=== PATIENT | female | born 2000 | race Caucasian/White ===

== ENCOUNTER 2022-03-17 09:26 | Emergency (ER) | payer OTHER, SELFPAY ==
--- NOTE | 2022-03-17 09:28 | ED.URI ---
HPI - URI/Sore Throat General Chief Complaint: Upper Respiratory Infection Stated Complaint: Sore Throat/Cough Time Seen by Provider: 03/17/22 09:28 Source: patient, family and RN notes reviewed History of Present Illness HPI Narrative: Patient is a 21-year-old female who presents to urgent care with complaints of sore throat cough. Mother states that her symptoms started yesterday and the sore throat was worse this morning. Denies any fever, nausea or vomiting. Patient has not taken anything [id number] for her symptoms. No other acute complaints. No acute distress noted. Patient aware of the plan of care. Some parts of this dictation were generated by voice recognition software and may contain typographical and/or grammatical inaccuracies. Related Data Home Medications Medication Instructions Recorded Confirmed No Home Medications 03/17/22 03/17/22 Allergies Allergy/AdvReac Type Severity Reaction Status Date / Time No Known Allergies Allergy Verified 03/17/22 10:00 Review of Systems Review of Systems: CONSTITUTIONAL: Denies fever, chills, or sweats. EYES: Denies visual changes, redness, or discharge. ENT: reports mild congestion, sore throat CARDIOVASCULAR: Denies chest pain, palpitations, or edema. RESPIRATORY: reports of cough GASTROINTESTINAL: Denies abdominal pain, nausea, vomiting, or diarrhea. GENITOURINARY: Denies dysuria or hematuria. SKIN: Denies rash or itching. MUSCULOSKELETAL: Denies back pain, joint pain, or myalgia. NEUROLOGIC: Denies headache, numbness, or weakness. All other systems reviewed are negative, except as documented in HPI. PMFSH Comments At the time of my signature, I reviewed and agree with the nursing past medical, surgical, social, and family history. There is no relevant family history pertinent to the patient complaint. Exam Narrative: GENERAL: This is a well-nourished, well-developed patient, in no apparent distress. HEAD: normocephalic, atraumatic. EYES: PERRL. Sclera clear/white. Vision is grossly intact. EARS: External ears normal, auditory canals clear and without drainage, TMs normal without perforation. Hearing grossly intact. NOSE: External nose normal with no obvious nasal discharge, nares without redness, Clear rhinorrhea. THROAT: Mucous membranes moist; moderate erythema to posterior oropharynx with mild tonsillar edema and exudate. NECK: Neck supple, non-tender without lymphadenopathy CARDIOVASCULAR: Regular rate and rhythm without murmurs, gallops, or rubs. RESPIRATORY: Clear to auscultation. Breath sounds equal bilaterally. No wheezes, rales, or rhonchi. SKIN: warm, intact with no suspicious lesions or rash, good texture and turgor. NEURO: awake, alert, and oriented to person, place and time. There were no obvious focal neurologic abnormalities. EXTREMITIES: No clubbing, cyanosis, or edema. Course Course Level of Care: Express Care Visit Vital Signs Vital signs: Vital Signs Temperature 97.4 F L 03/17/22 09:44 Pulse Rate 87 03/17/22 09:44 Respiratory Rate 16 03/17/22 09:44 Blood Pressure 120/91 H 03/17/22 09:44 Pulse Oximetry 100 03/17/22 09:44 Oxygen Delivery Room Air 03/17/22 09:44 Temperature 97.4 F L 03/17/22 09:44 Pulse Rate 87 03/17/22 09:44 Respiratory Rate 16 03/17/22 09:44 Blood Pressure 120/91 H 03/17/22 09:44 Pulse Oximetry 100 03/17/22 09:44 Oxygen Delivery Room Air 03/17/22 09:44 reviewed- Patient is informed that they may have pre-hypertension or hypertension based on a blood pressure reading in the department. I recommend the patient call the primary care provider listed on their discharge instructions or a physician of their choice this week to arrange follow-up for further evaluation of possible pre-hypertension or hypertension. MDM - URI/Sore Throat MDM Narrative Medical decision making narrative: reviewed lab results with the patient. She is aware that strep swab Was negat
[2022-03-17 09:44] VITALS: BP 120/91; PULSE 87; RESP 16; TEMP 36.3; O2SAT 100
== END 2022-03-17 10:45 | disposition home or self-care (01) ==
PROVIDERS: Emergency Provider Nurse Practitioner Family
DX: J02.9 Acute pharyngitis, unspecified (principal)
CPT/HCPCS: 87081; 87880; 99213; G0463

== ENCOUNTER 2022-10-30 11:21 | Emergency (ER) | payer OTHER, SELFPAY ==
[2022-10-30 11:27] VITALS: BP 127/93; PULSE 89; RESP 16; TEMP 36.3; O2SAT 99
--- NOTE | 2022-10-30 11:36 | ED.NAVMDI ---
HPI - Nausea/Vomiting/Diarrhea General Chief complaint: Nausea/Vomiting/Diarrhea Stated complaint: Vomiting Source: patient and RN notes reviewed Mode of arrival: ambulatory Limitations: no limitations History of Present Illness HPI Narrative: Patient is a 22-year-old female who presents to the [facility] with complaints of nausea and vomiting that has been intermittent for the past 2 weeks. Patient states that she is mostly dry heaving. States that she very infrequently vomits. However, she reports continuous nausea that worsens with eating. She denies abdominal pain, diarrhea, urinary symptoms. Denies recent fever or chills. States that she has taken 3 tests at home were all negative. Patient states that she feels as if her symptoms are getting better. However, her grandmother states that she needed to get checked out today. Related Data Allergies Allergy/AdvReac Type Severity Reaction Status Date / Time No Known Allergies Allergy Verified 03/17/22 10:00 Review of Systems Review of Systems: CONSTITUTIONAL: Denies fever, chills, or sweats. EYES: Denies visual changes, redness, or discharge. ENT: Denies otalgia and sore throat CARDIOVASCULAR: Denies chest pain, palpitations, or edema. RESPIRATORY: Denies cough or dyspnea. GASTROINTESTINAL: Denies abdominal pain and diarrhea. Reports nausea and vomiting. GENITOURINARY: Denies dysuria or hematuria. SKIN: Denies rash or itching. MUSCULOSKELETAL: Denies back pain, joint pain, or myalgia. NEUROLOGIC: Denies headache, numbness, or weakness. Pertinent positives per HPI. PMFSH Comments At the time of my signature, I reviewed and agree with the nursing past medical, surgical, social, and family history. There is no relevant family history pertinent to the patient complaint. Exam Narrative: GENERAL: This is a well-nourished, well-developed patient, in no apparent distress. HEAD: normocephalic, atraumatic. EYES: Sclera clear/white. Vision is grossly intact. EARS: External ears normal. Hearing grossly intact. NOSE: External nose normal with no obvious nasal discharge, nares without redness, no rhinorrhea. THROAT: Mucous membranes moist, posterior pharynx clear. NECK: Neck supple, non-tender without lymphadenopathy, masses or thyromegaly. CARDIOVASCULAR: Regular rate and rhythm without murmurs, gallops, or rubs. RESPIRATORY: Clear to auscultation. Breath sounds equal bilaterally. No wheezes, rales, or rhonchi. GASTROINTESTINAL: Abdomen soft, non-tender, nondistended. Bowel sounds are active. No hepato-splenomegaly, or palpable masses. No guarding. SKIN: warm, intact with no suspicious lesions or rash, good texture and turgor. NEURO: awake, alert, and oriented to person, place and time. There were no obvious focal neurologic abnormalities. Course Course Level of Care: Express Care Visit Vital Signs Vital signs: Vital Signs Temperature 97.4 F L 10/30/22 11:27 Pulse Rate 89 10/30/22 11:27 Respiratory Rate 16 10/30/22 11:27 Blood Pressure 127/93 H 10/30/22 11:27 Pulse Oximetry 99 10/30/22 11:27 Oxygen Delivery Room Air 10/30/22 11:27 Temperature 97.4 F L 10/30/22 11:27 Pulse Rate 89 10/30/22 11:27 Respiratory Rate 16 10/30/22 11:27 Blood Pressure 127/93 H 10/30/22 11:27 Pulse Oximetry 99 10/30/22 11:27 Oxygen Delivery Room Air 10/30/22 11:27 Reviewed MDM - Nausea/Vomiting/Diarrhea MDM Narrative Medical decision making narrative: You've been diagnosed with a viral illness that would not require antibiotics at this time. Take the Zofran ODT at home as directed for nausea and get plenty of fluids. If you would like to eat food, you should follow the BRAT diet (bananas, rice, applesauce, and toast, or things of the like). If you develop any new or worsening symptoms, you should go to the emergency dept without hesitation. Follow up with your gas worker in 2-5 days. Differential Diagnosis Differential diagnos
== END 2022-10-30 11:39 | disposition home or self-care (01) ==
PROVIDERS: Emergency Provider Nurse Practitioner
DX: A08.4 Viral intestinal infection, unspecified (principal)
CPT/HCPCS: 99213; G0463

== ENCOUNTER 2023-03-15 09:58 | Emergency (ER) | payer OTHER, SELFPAY ==
[2023-03-15 10:03] VITALS: BP 124/74; PULSE 90; RESP 18; TEMP 36.7; O2SAT 98
--- NOTE | 2023-03-15 10:15 | ED.NAVMDI ---
HPI - Nausea/Vomiting/Diarrhea General Chief complaint: Nausea/Vomiting/Diarrhea Stated complaint: Vomiting History of Present Illness HPI Narrative: PATIENT PRESENTS WITH NAUSEA AND VOMITING WITH SOME CONCERN FOR . PATIENT HAS RIGHT LOWER QUADRANT PAIN WORSE WITH MOVEMENT. FEVER ON AND OFF Related Data Home Medications Medication Instructions Recorded Confirmed No Home Medications 03/15/23 03/15/23 Allergies Allergy/AdvReac Type Severity Reaction Status Date / Time No Known Allergies Allergy Verified 03/15/23 10:12 Review of Systems Review of Systems: CONSTITUTIONAL: DENIES CHILLS, OR SWEATS. REPORTS FEVER AND GENERALIZED BODY ACHES EYES: DENIES VISUAL CHANGES, REDNESS, OR DISCHARGE. ENT: DENIES OTALGIA. REPORTS NASAL CONGESTION RUNNY NOSE AND SORE THROAT CARDIOVASCULAR: DENIES CHEST PAIN, PALPITATIONS, OR EDEMA. RESPIRATORY: DENIES DYSPNEA. REPORTS OCCASIONAL COUGH GASTROINTESTINAL: DENIES ABDOMINAL PAIN, NAUSEA, VOMITING, OR DIARRHEA. GENITOURINARY: DENIES DYSURIA OR HEMATURIA. SKIN: DENIES RASH OR ITCHING. MUSCULOSKELETAL: DENIES BACK PAIN, JOINT PAIN, OR MYALGIA. REPORTS GENERALIZED BODY ACHES NEUROLOGIC: DENIES HEADACHE, NUMBNESS, OR WEAKNESS. PSYCHIATRIC: DENIES ANXIETY OR DEPRESSION. PMFSH Comments AT TIME OF SIGNATURE, AGREE WITH NURSING PAST MEDICAL, SURGICAL, SOCIAL AND FAMILY HISTORY. THERE IS NO RELEVANT FAMILY HISTORY PERTINENT TO THE PRESENTING COMPLAINT Exam Narrative: GENERAL: WELL-APPEARING, WELL-NOURISHED, AND IN NO ACUTE DISTRESS. HEAD: NORMOCEPHALIC, ATRAUMATIC. EYES: PERRLA AND EOMI. ENT: NARES CLEAR, NO RHINORRHEA OR EPISTAXIS. MUCOUS MEMBRANES MOIST. NECK: SUPPLE. CHEST: CLEAR TO AUSCULTATION. NO RESPIRATORY DISTRESS. HEART: REGULAR RATE AND RHYTHM. NO MURMUR HEARD. NORMAL PERIPHERAL PULSES. ABDOMEN: SOFT, NONTENDER, NONDISTENDED, NORMAL ACTIVE BOWEL SOUNDS.RIGHT LOWER QUADRANT TENDERNESS AND GUARDING EXTREMITIES: NORMAL RANGE OF MOTION. NO EDEMA. SKIN: WARM, DRY, NO RASH. NEURO: NO FOCAL DEFICITS. ALERT AND ORIENTED X3. MEEK COMA SCALE EYE OPENING: SPONTANEOUS 4 MEEK COMA SCALE MOTOR: OBEYS COMMANDS 6 MEEK COMA SCALE VERBAL: ORIENTED 5 MEEK COMA SCALE TOTAL 15 Course Course Level of Care: Express Care Visit Vital Signs Vital signs: Vital Signs Temperature 36.7 C 03/15/23 10:03 Pulse Rate 90 03/15/23 10:03 Respiratory Rate 18 03/15/23 10:03 Blood Pressure 124/74 03/15/23 10:03 Pulse Oximetry 98 03/15/23 10:03 Oxygen Delivery Room Air 03/15/23 10:03 Temperature 36.7 C 03/15/23 10:03 Pulse Rate 90 03/15/23 10:03 Respiratory Rate 18 03/15/23 10:03 Blood Pressure 124/74 03/15/23 10:03 Pulse Oximetry 98 03/15/23 10:03 Oxygen Delivery Room Air 03/15/23 10:03 Transfer Transfered to: [facility] Transportation: Other Accepting physician: MARK ANTHONY Transfer comments: FURTHER EVALUATION TREATMENT LABS AND IMAGING OF RIGHT LOWER QUADRANT PAIN, NAUSEA VOMITING Discharge Plan Discharge Clinical Impression: Abdominal pain Patient Disposition: Acute Care Hospital Condition: Stable Additional Instructions: DO NOT EAT OR DRINK EN ROUTE TO [facility] Prescriptions: No Action No Home Medications Follow-up/Referrals: PHYSICIAN,TRANSFERRER [Primary Care Provider] -
== END 2023-03-15 10:30 | disposition short-term general hospital (02) ==
PROVIDERS: Emergency Provider Nurse Practitioner Family
DX: R10.31 Right lower quadrant pain (principal)
CPT/HCPCS: 81003; 81025; 99212; G0463

== ENCOUNTER 2024-02-20 09:21 | Emergency (ER) | payer OTHER, SELFPAY ==
[2024-02-20 09:28] VITALS: BP 108/76; PULSE 99; RESP 20; TEMP 37.4; O2SAT 97
--- NOTE | 2024-02-20 09:32 | ED.HA ---
HPI - Headache General Chief Complaint: Headache Stated Complaint: headache x 4 days Time Seen by Provider: 02/20/24 09:33 Source: patient, RN notes reviewed and old records reviewed Mode of arrival: ambulatory Limitations: no limitations History of Present Illness HPI Narrative: 23-year-old female to Express Care with complaint headache the top her head for 4 days as well as vomiting last night. Patient has a reported to treat at home with ibuprofen and Tylenol p.m. Patient denies visual changes, dizziness, weakness, ear pain, abdominal. Patient resting uncomfortably in exam room, appears tired. Patient in no acute distress. Related Data Allergies Allergy/AdvReac Type Severity Reaction Status Date / Time No Known Allergies Allergy Verified 03/15/23 10:12 Review of Systems Review of Systems: All systems reviewed & are unremarkable except as noted in HPI and below Constitutional: Constitutional: Reports as per HPI and Reports headache(s) Eyes: Eyes: Reports no additional eye complaints ENT: Reports system reviewed and no additional complaints, except as documented Cardiovascular: Cardiovascular: Reports no additional cardiovascular complaints, Denies chest pain and Denies dyspnea Respiratory: Respiratory: Reports no additional respiratory complaints, Denies cough and Denies dyspnea Musculoskeletal: Musculoskeletal: Reports no additional musculoskeletal complaints Neurologic: Reports system reviewed and no additional complaints, except as documented Psychiatric: Psychiatric: Reports no additional psychiatric complaints PMFSH Comments At the time of my signature, I reviewed and agree with the nursing past medical, surgical, social, and family history. There is no relevant family history pertinent to the patient complaint. Exam Const: General: cooperative, no acute distress, alert, ill appearing acutely, tired appearing, uncomfortable and well nourished Nutritional Appearance: well nourished Orientation/consciousness: patient oriented x3 Limitations: no limitations HENMT: Head: normal to inspection Ears: external ears normal Face/Nose/Sinus: Normal external nose present, Normal nares present, normal facial exam, No erythema and No edema Face and sinus: normal facial exam, no erythema and no edema Mouth: Yes Normal oral and palatal mucosa present Eyes: General: appearance normal, both eyes and all related structures Neck: Neck: normal visual inspection, full ROM and no meningeal signs Chest: Chest palpation & inspection: normal inspection of the chest Resp: Effort & Inspection: normal respiratory effort and able to speak in complete sentences Cardio: Jugular venous distension: no JVD Rate: regular rate Back/Spine/Pelvis: Cervical Spine: cervical ROM normal Skin: General skin exam: normal color, no rashes or lesions noted and turgor normal Neuro: General: patient oriented x3, gait normal, moves all extremities and no meningeal signs Speech: normal speech Gait exam (Neuro): Normal gait present Extrem: General: normal to inspection, full ROM and capillary refill normal Psych: Appearance: grossly normal and well kempt Course Course Emergency Course: Some parts of this dictation were generated by voice recognition software and may contain typographical and/or grammatical inaccuracies. Level of Care: Express Care Visit Vital Signs Vital signs: Vital Signs Temperature 37.4 C 02/20/24 09:28 Pulse Rate 99 02/20/24 09:28 Respiratory Rate 20 02/20/24 09:28 Blood Pressure 108/76 02/20/24 09:28 Pulse Oximetry 97 02/20/24 09:28 Oxygen Delivery Room Air 02/20/24 09:28 Temperature 37.4 C 02/20/24 09:28 Pulse Rate 99 02/20/24 09:28 Respiratory Rate 20 02/20/24 09:28 Blood Pressure 108/76 02/20/24 09:28 Pulse Oximetry 97 02/20/24 09:28 Oxygen Delivery Room Air 02/20/24 09:28 reviewed MDM - Headache MDM Narrative Medical decision making narrative: 23
[2024-02-20] MEDS: diphenhydrAMINE HCl INJ 50 MG/ML VIAL IM (09:58)
[2024-02-20] MEDS: ONDANSETRON HCL ODT 4 MG TABLET PO (09:58)
[2024-02-20] MEDS: KETOROLAC 30 MG/ML VIAL (*BKC) IM (09:58)
== END 2024-02-20 10:21 | disposition home or self-care (01) ==
PROVIDERS: Emergency Provider Nurse Practitioner Family
DX: G43.909 Migraine, unspecified, not intractable, without status migrainosus (principal)
CPT/HCPCS: 96372; 99214; A9270; G0463; J1200; J1885

== ENCOUNTER 2024-04-28 12:21 | Emergency (ER) | payer OTHER, SELFPAY ==
[2024-04-28 12:36] VITALS: BP 123/75; PULSE 102; RESP 16; TEMP 37.8; O2SAT 99
--- NOTE | 2024-04-28 13:47 | ED.SKABFB ---
HPI - Skin/Abscess/Foreign Bdy General Chief complaint: Skin/Abscess/Foreign Body Stated complaint: Left buttock wound Time Seen by Provider: 04/28/24 13:30 Source: patient and RN notes reviewed Mode of arrival: ambulatory Limitations: no limitations History of Present Illness HPI narrative: 24 year old female presents to [facility] care with 2 days history of abscess to left mid buttock 0.5cm X 0.5cm open draining wound with purulent drainage mixed with some blood with some redness and induration [id number] surrounding open area. Patient does have some fever and reports pain to the site of abscess. She reports that she has been doing warm soaks to her left buttock and has covered area with bandage.. MD complaint: abscess/boil Onset (ago): day(s) (2) Tetanus up to date: no Severity scale (1-10): 9 Quality: sharp and other (throbbing) Pain Consistency: constant Treatments prior to arrival: other (warm soaks and bandage) Related Data Allergies Allergy/AdvReac Type Severity Reaction Status Date / Time No Known Allergies Allergy Verified 04/28/24 12:41 Review of Systems Review of Systems: CONSTITUTIONAL: Denies fever, chills, or sweats. CARDIOVASCULAR: Denies chest pain, palpitations, or edema. RESPIRATORY: Denies cough or dyspnea. GASTROINTESTINAL: Denies abdominal pain, nausea, vomiting SKIN: Reports redness and swelling with open draining wound to her left buttock with pain. surrounding induration with no vesicle formation or pustule formation presently draining purulent drainage. MUSCULOSKELETAL: Denies myalgia. NEUROLOGIC: Denies headache, numbness All systems reviewed & are unremarkable except as noted in HPI and below PMFSH Past Medical History Medical History (Updated 04/30/24 @ 13:21 by Stella Silva NP) Migraine Social History Social History (Updated 04/30/24 @ 13:27 by Stella Silva NP) Smoking status: Current every day smoker Tobacco type: e-cigarettes/vaping Alcohol intake: unknown Substance use: unknown Living arrangements: with family Gender identity (if verbalized by the patient): Female Comments At time of signature, agree with nursing past medical, surgical, social and family history. There is no relevant family history pertinent to the presenting complaint Exam Narrative: GENERAL: Well-appearing, well-nourished, and in no acute distress. HEAD: Normocephalic, atraumatic. EYES: PERRLA and EOMI. ENT: Nares clear, no rhinorrhea or epistaxis. Mucous membranes moist. NECK: Supple. no lymphadenopathy CHEST: Clear to auscultation. No respiratory distress.SAO2 99% on room air HEART: Regular rate and rhythm. No murmur heard. Normal peripheral pulses. ABDOMEN: Soft, nontender, nondistended, normal active bowel sounds. EXTREMITIES: Normal range of motion. No edema. SKIN: Warm, dry. Erythema, induration, tenderness, warmth with draining abscess to left buttock, with [id number], area of red induration around open wound with purulent drainage with pain and tenderness NEURO: No focal deficits. Alert and oriented x3. Course Course Emergency Course: Patient is aware of diagnosis, understands and agrees to treatment plan. Anticipatory guidance given. Patient agrees to follow-up as directed and is aware of reasons to seek care at the emergency department. Portions of this record may have been created with voice recognition software Level of Care: Express Care Visit Vital Signs Vital signs: Vital Signs Temperature 37.8 C H 04/28/24 12:36 Pulse Rate 102 H 04/28/24 12:36 Respiratory Rate 16 04/28/24 12:36 Blood Pressure 123/75 04/28/24 12:36 Pulse Oximetry 99 04/28/24 12:36 Oxygen Delivery Room Air 04/28/24 12:36 Temperature 37.8 C H 04/28/24 12:36 Pulse Rate 102 H 04/28/24 12:36 Respiratory Rate 16 04/28/24 12:36 Blood Pressure 123/75 04/28/24 12:36 Pulse Oximetry 99 04/28/24 12:36 Oxygen Delivery Room Air 04/28/24 12:36 Reviewed MDM - Skin/Abscess/Foreign Bdy MDM Narrative Medical decision making narrative: Does not appear at this time to be erythema multiforme, bullous, SJS, TEN; no evidence at this time to suggest RMSF, endocarditis or Lyme disease; patient looks well, nontoxic and is tolerating oral intake; no neurologic signs or symptoms; no headache, photophobia or neck pain; afebrile; appropriate for initial outpatient treatment; discussed the importance of follow-up, patient agrees. Patient does not have history of penetrating trauma, laceration, blunt trauma, recent surgery, immunosuppression, malignancy, obesity, alcoholism, corticosteroid use. Question cellulitis, necrotizing soft tissue infection, abscess. Tetanus Boostrix updated while in clinic Differential Diagnosis Differential diagnosis: Likely abscess of skin or subcutaneous tissue, cellulitis, insect bites and contact dermatitis Medical Records Attestation: I reviewed the patient's medical records. Critical Care Time Critical Care Time Critical Care Time: No Discharge Plan Discharge Clinical Impression: Abscess of buttock, left Patient Disposition: Home, Self-Care Condition: Stable Instructions: Antibiotic Form, Abscess (ED) Additional Instructions: Cleanse left buttock twice daily with liquid dial soap and apply Mupiricin ointment to wound cover with dressing of choice watch for increasing infection--redness, swelling, drainage Tylenol or Ibuprofen for any pain or fever follow up with PCP in 7-10 days for a wound check recheck if develop fever, chills, increasing symptom Go to the ER if your symptoms become worse of if ANY new symptoms develop Antibiotic as ordered make sure to take with food If your symptoms persist, change or worsen significantly before you can contact your personal physician then please, without delay, go to the emergency department for further evaluation. Follow-up with PCP in 7-10 days or sooner if needed Patient Language: Greek Prescriptions: New clindamycin HCl 300 mg capsule 300 mg PO Q8H Qty: 30 0RF ibuprofen 600 mg tablet 600 mg PO QID PRN (Reason: fever or pain) Qty: 20 0RF mupirocin 2 % ointment 1 applic topical BID Qty: 22 0RF Follow-up/Referrals: PHYSICIAN,HOUSEKEEPING COORDINATOR [Primary Care Provider] - Stand Alone Forms: Work/School Release IP Time of Disposition: 14:09 Quality Nadeem Coma Scale Eyes: Open Verbal: Oriented and Alert Motor: Follows Commands Everetts Coma Total Score: 15
[2024-04-28] MEDS: TETANUS,DIPHTHERIA,AC PERTUSSIS ADULT (0.5 ML) BOOSTRIX IM (14:09)
--- NOTE | 2024-05-01 12:20 | ED.PROGRESS ---
Subjective Date/time seen: 05/01/24 12:20 Review of Systems Review of Systems patient's wound culture results returned and show resistance to clindamycin patient was prescribed. Plan to treat with doxycycline as she has tetracycline sensitive per report. I have contacted the patient at [phone] and left a voicemail, awaiting callback for patient update.
== END 2024-04-28 14:20 | disposition home or self-care (01) ==
PROVIDERS: Emergency Provider Registered Nurse
DX: L02.31 Cutaneous abscess of buttock (principal); Z23 Encounter for immunization; F17.290 Nicotine dependence, other tobacco product, uncomplicated
CPT/HCPCS: 87070; 87075; 87181; 87205; 90471; 90715; 99213; G0463

== ENCOUNTER 2025-02-05 11:53 | Emergency (ER) | payer OTHER, SELFPAY ==
--- OUTSIDE RECORDS SUMMARY | 2025-02-05 11:55 | XMS_ITS | Clinical Summary ---
Author Organization [facility] Address [address] [place] [id number] Care Team Providers Care Stroke Program Coordinator Name Role Phone No, Physician Primary Care Provider [phone] Allergies No known active allergies Medications acetaminophen (TYLENOL) 325 mg tablet Take 2 tablets (650 mg total) by mouth every 4 (four) hours as needed for pain 0 Active Additional Information Patient not taking.Reported on 10/24/2021 vitamin ferrous fumarate-folic () 28 mg iron- 800 mcg tablet Take 1 tablet by mouth daily 30 tablet 11 2 Active ferrous sulfate 325 mg (65 mg of elemental iron) tabletIndicatio ns:Iron Deficiency Anemia Take 1 tablet (325 mg total) by mouth daily 30 tablet 11 2 Active ibuprofen (ADVIL,MOTRIN) 600 mg tablet Take 1 tablet (600 mg total) by mouth every 6 (six) hours as needed for pain 24 tablet 2 Active Active Problems Problem Noted Date Diagnosed Date GBS (group B Streptococcus c arrier), +RV culture, currently 11/29/2021 Overview (11/29/2021): Penicillin in labor. Supervision of high-risk , unspecified trimester 11/08/2021 Overview (11/11/2021): As she has no growth restriction noted, she will return to your excellent care for further follow-up. Anemia during in third trimester 10/03 Rh negative, antepartum 10/03/2021 Overview (10/03/2021): Rhogam given 10/03/21. Chlamydia infection affecting in secon d trimester 07/26/2021 Overview (10/03/2021): Positive test 07/25/21. Negative JAY 09/18/21. Hx of preeclampsia, prior , currently p regnant 07/25/2021 Overview (11/11/2021): Ms. Bishop developed severe preeclampsia at term during her last . Her blood pressure is normal today, she has no symptoms, and has not initiated aspirin. We reviewed her recurrence risk is 20%. Blood pressure and symptoms precautions were reviewed. She reported excellent monitoring by her primary OB. 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 Reports having sex for the first time on 01/05/18 with her boyfriend age 17. Told her mom yesterday and they report her today. Pt. With nausea and vomiting and wanted to check for . Pt. Also wanted STD testing. Last menses was the begining of last month approximately on the 10 of December. Pt. Does smoke vapor, denies ETOH, illicit drugs. POCT urine test for was Positive today. Mother and sister was here with patient with the news. Pt./family was told to f/u with DEVELOPMENT ASSISTANT specialist. Encouraged her not to smoke the vapor cigarettes, no alcohol or drugs. Do not take any medications without talking to her doctor. Go to ER if develops abdominal pain, vaginal bleeding, fevers or uncontrolled N/V. The office will contact her in the next 2-3 days regarding the STD testing. Immunizations Immunization Administration Dates Next Due Influenza, Quadrivalent, Spl it, Preservative Free, Intramuscular 02/11/2020 Tdap 02/11/2020 Medical History Medical History Date Comments Migraine gets eye migrain es Family History Medical History Relation Name Comments Hypertension Maternal Grandfather Hypertension Maternal Grandmother Hypertension Mother Hypertension Mother's Brother Hypertension Mother's Sister Cancer Other Relation Name Status Comments Maternal Grandfather Maternal Grandmother Mother Mother's Brother Mother's Sister Other Social History Tobacco Use Types Packs/Day Years Used Date Smoking Tobacco: Every Day Vaping Started: 2012 Smokeless Tobacco: Never Tobacco Cessation:Ready to Q uit: No Comments:vape Alcohol Use Standard Drinks/Week Comments Never 0 (1 standard drink = 0.6 oz pur e alcohol) AUDIT-C Answer Date Recorded Q1: How often do you have a drink containing alcohol? Never 12/17/2021 Q2: How many drinks containi ng alcohol do you have on a typical day when you are drinking? Patient does not drink Q3: How often do you have si x or more drinks on one occasion? 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 Gender Identity Not on file Sexual Orientation Not on file Obstetrics History Para Term AB IAB SAB Ectopic Multiple Livin g Live Births 3 3 3 0 3 3 Date Outcome GA Total Labor Labor/2nd/3rd Weight Sex Type Anes PTL Jeannine A1 A5 Name Clin 2018 Term 40w 2d 9h 04m 7h 48m/1h 12m/0h 04m 2.983 kg (6 lb 9.2 oz) M Vag-S pont Epidur al,Loc al N Livin g 8 9 MAGGA RT,ANTHONY EDWIN conrad, Jemima Vela MD Complications:None Delivery [facility]) 2019 Term 39w 4d 1h 25m 1h 15m/0h 06m/0h 04m 3.114 kg (6 lb 13.8 oz) F Vag-S pont Epidur al N Livin g 8 9 MAGGA RT,GI RLLIL BRENDAN wakefield, Laurent Parkinson MD Complications:Precipitous La bor (<3 hours) Delivery Location:[facility]) 2021 Term 39w 4d 1h 14m 1h 04m/0h 05m/0h 05m 3.108 kg (6 lb 13.6 oz) F Vag-S pont Epidur al N Livin g 8 9 MAGGA RT,GI RLLIL Shasha Mathis MD Complications:None Delivery Location[facility]) Comments 1. 2018 - pitocin induction for preeclampsia on magnesium. 2. 2019 - spontaneous labor, [facility]F. 3. Current - FOB #2. Last Filed Vital Signs Vital Sign Reading Time Taken Comments Blood Pressure 117/69 12/19/2021 12:00 AM CDT Pulse 76 12/19/2021 12:00 AM CDT Temperature 36.9 C (98.4 F) 12/19/2021 12:00 AM CDT Respiratory Rate 18 12/19/2021 12:00 AM CDT Oxygen Saturation 97% 12/19/2021 12:00 AM CDT Inhaled Oxygen Concentration - - Weight 80.3 kg (177 lb) 12/17/2021 12:58 AM CDT Height 165.1 cm (5' 5) 12/17/2021 12:58 AM CDT Body Mass Index 29.45 12/17/2021 12:58 AM CDT Plan of Treatment Not on file Insurance [facility] Advance Directives For more information, please contact: [phone] * Full Code (Latest Code Status on File) Date Activated Date Inactivated Comments 12/17/2021 9:21 AM 12/19/2021 5:28 PM * Full Code Date Activated Date Inactivated Comments 12/16/2021 10:35 PM 12/17/2021 9:21 AM Full CPR in case of cardiopulmonary arrest * Full Code Date Activated Date Inactivated Comments 02/09/2020 2:25 PM 02/11/2020 3:57 PM * Full Code Date Activated Date Inactivated Comments 02/09/2020 9:33 AM 02/09/2020 2:25 PM Full CPR in case of cardiopulmonary arrest * Full Code Date Activated Date Inactivated Comments 09/21/2018 7:34 AM 09/26/2018 12:59 AM Full CPR in case of cardiopulmonary arrest Care Teams Stroke Program Coordinator Relationship Specialty Start Date End Date No, Physician PCP - General 11/05/21
--- OUTSIDE RECORDS SUMMARY | 2025-02-05 11:55 | XMS_ITS | Clinical Summary ---
Author Organization [facility] Address [address] [place] [address] Phone Care Team Providers Care Agriculture Inspector Name Role Phone Provider, None Primary Care Provider Unavailabl e Allergies No known active allergies Medications HYDROcodone-acet aminophen (NORCO) 5-325 MG Tablet Take 1-2 Tabs by mouth every 4 hours as needed for Pain. 20 Tab 0 05/22/2015 Active RaNITidine HCl (ZANTAC PO) Take by mouth. Active omeprazole (PRILOSEC) 20 MG CAPSULE DELAYED RELEASE Take 1 Cap by mouth daily. 30 Cap 01/11/2018 Active ibuprofen (MOTRIN) 600 MG Tablet Take 1 Tablet by mouth every 8 hours. 30 Tablet 03/15/2023 Active ondansetron (ZOFRAN-ODT) 4 MG TABLET DISPERSIBLE Take 1 Tablet by mouth every 8 hours as needed for Nausea - 1st line. 10 Tablet 03/30/2023 Active Immunizations Immunization Administration Dates Next Due DTAP VACCINE 01/12/2007, 3,2001,10/27,2001 HEP B/HIB Combined Vaccine 2001 Hepatitis A Vaccine, Pediatric/adolescent, 2 Dose Schedule 04/30/2004 Hepatitis A, Pediatric, Unsp ecified Formulation 01/12/2007 Hepatitis B Vaccine, Pediatric/adolescent 2001,2001 Hib Vaccine,unspecified Formulation 09/13/2002,0 2001,2001 Inactivated Polio Vaccine 01/12/2007,,2001,09/26,2001 Influenza Vaccine, Quadrivalent, PF 02/11/2020 Influenza, Injectable, Quadrivalent 06/16/2018 MMR Vaccine 01/12/2007,09/13/2002 Meningococcal MCV4O 01/13/2014 Pneumococcal Vaccine Peds - 7 Valent 2001, 2001 RHO(D) Immune Globulin- IV Or IM 07/05/2018 TDAP Vaccine 02/11/2020,07/01/2018,01/13/2014 Varicella Vaccine Live 01/12/2007,09/13/2002 Social History Tobacco Use Types Packs/Day Years Used Date Smoking Tobacco: Passive Smo ke Exposure - Never Smoker Smokeless Tobacco: Never Alcohol Use Standard Drinks/Week Comments No 0 (1 standard drink = 0.6 oz pur e alcohol) Comments No Sex and Gender Information Value Date Recorded Sex Assigned at Not on file Legal Sex Female 10:29 PM CDT Gender Identity Not on file Sexual Orientation Not on file Last Filed Vital Signs Vital Sign Reading Time Taken Comments Blood Pressure 112/69 03/30/2023 9:14 PM [employer]WN [employer] GARDEN TECHNICIAN Pulse 96 03/30/2023 10:56 PM LAWN AND GARDEN TECHNICIAN Temperature 36.9 C (98.5 F) 03/30/2023 9:14 PM LAWN AND GARDEN TECHNICIAN Respiratory Rate 18 03/30/2023 10:56 PM LAWN AND GARDEN TECHNICIAN Oxygen Saturation 99% 03/30/2023 10:56 PM LAWN AND GARDEN TECHNICIAN Inhaled Oxygen Concentration - - Weight 61.2 kg (135 lb) 03/30/2023 9:14 PM LAWN AND GARDEN TECHNICIAN Height 165.1 cm (5' 5) 03/30/2023 9:14 PM LAWN AND GARDEN TECHNICIAN Body Mass Index 22.47 03/30/2023 9:14 PM LAWN AND GARDEN TECHNICIAN Plan of Treatment Health Maintenance Due Date Last Done Comments Hepatitis C Virus (HCV) Screening 2001 Human Papillomavirus (HPV) Immunization (1 - 3-dose series) 2016 Meningococcal B Immunization (1 of 2 - Standard) 2017 Pap Smear 2022 Influenza Immunization (#1) 2025 02/11/2020, 0 06/16/2018 SARS-COV-2 Immunization ( - season) 2025 DTaP/Tdap/Td Immunization (9 - Td or Tdap) 02/10/2030 02/11/2020, 07/01/2018, 01/13/2014, Additional history exists Respiratory Syncytial Virus (RSV) Immunization (Adult) (1 - 1-dose 75+ series) 2076 Hepatitis B Immunization Completed 002, 2001, 2001 Pneumococcal Immunization Combined Aged Out 2001, 2001 No longer eligibl e based on patient's age to complete this topic Hepatitis A Immunization Discontinued 01/12/2007, 04/04 Measles Mumps Rubella (MMR) Immunization Discontinued 01/12/2007, 09/13/2002 Polio (IPV) Immunization Discontinued 007, 09/13/2002, 2001, Additional history exists Varicella Immunization Discontinued 01/12/2007, 2002 Meningococcal Immunization (ACWY) Aged Out 01/13/2014 No longer eligible based on patient's age to complete this topic Rotavirus Immunization Aged Out No lo nger eligible based on patient's age to complete this topic Insurance MEDICAID [employer] Care Teams Agriculture Inspector Relationship Specialty Start Date End Date Provider, None [place] PCP - General 03/15/23
--- OUTSIDE RECORDS SUMMARY | 2025-02-05 11:55 | XMS_ITS | Data Portability ---
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 [email or web address] Not available 04/10/2023 23:57:16 Plan of Treatment Reminders Order Date Submit Date Provider Last Modified By Organization Details Last Modified Time Details Appointments None recorded. Lab vaginal pathogens panel, SUSI+probe , vaginal fluid 2023 024 [facility], [address], [address], [place], [address], 4 06:22:52 CMP, serum or plasma 2022 023 [facility], [address] Simona Perera, [address], [place], [address], 3 19:08:34 urinalysi s, dipstick 2018 019 [email or web address] In-Office Order, Internal Use Only DO Not Attach Compendium DO Not Attach Compendium, Do Not Delete/merge, [id number] 12:33:00 urinalysi s, dipstick 2018 019 [email or web address] In-Office Order, Internal Use Only DO Not Attach Compendium DO Not Attach Compendium, Do Not Delete/merge, [id number] 9 11:56:46 urinalysi s, dipstick 2018 019 [email or web address] In-Office Order, Internal Use Only DO Not Attach Compendium DO Not Attach Compendium, Do Not Delete/merge, [id number] 10:46:55 Referral None recorded. Procedures insertion , intrauter ine device (PROC) 2023 024 [email or web address] Not available 4 12:59:28 Surgeries None recorded. Imaging None recorded. Medication Orders Mirena 21 mcg/24 hr (up to 8 years) 52 mg intrauter ine device 2023 024 [email or web address] Not available 4 13:28:10 Miralax 17 gram/dose oral powder 2022 023 [facility] #[id number], [address] [place], [address], 3 09:57:37 famotidin e 20 mg tablet 2022 023 [email or web address] [facility]/Pharmacy #[id number], [address] [place], [address], 3 20:29:36 ondansetr on 8 mg disintegr ating tablet 2022 023 [id number] [address] [place], [address], 3 09:57:38 Patient TargetsNo targets recorded. Patient Instructions Encounter Date Encounter Id Patient Instructions Last Modified By Organization Details Last Modified Time 04/10/2023 [id number] gastroesophageal reflux disease (GERD): care instructions [email or web address] Not available 04/10/2023 23:38:12 GERD diet education [email or web address] Not a vailable 04/10/2023 23:38:12 I discussed the patient s presentation, findings, assessment and plan with the resident during or immediately after the time of service. I agree with the resident s findings, assessment, and plan as documented in the note above. Alcira Peter MD. [facility] [email or web address] Not available 04/10/2023 10:04:44 05/29/2023 [id number] intrauterine dev ice (IUD) insertion: care instructions [email or web address] Not available 05/29/2023 10:51:51 Attending Physic clara Addendum I personally saw and examined the patient with the resident. I was physically present during the entire procedure and provided direct supervision throughout procedure duration. have reviewed the documentation and agree with the history, physical findings, work-up, and medical decision making as recorded. Joya Moran MD [email or web address] Not available 06/06/2023 09:28:21 Reason for Referral None Reported. Results Created Date Observation Date Name Description Value Unit Range Abnormal Flag Note LastModifiedBy Organization Detail LastModifiedTime 08/20/19 19 08/19/2018 urina lysis , dipst ick Protein 30 Not Available In-Office Order Internal Use Only DO Not Attach Compendium DO Not Attach Compendium, Do Not Delete/merge, [id number] 08/19/2018 12:03:02 08/20/19 19 08/19/2018 urina lysis , dipst ick Glucose Negati ve Not Available In-Office Order Internal Use Only DO Not Attach Compendium DO Not Attach Compendium, Do Not Delete/merge, [id number] 08/19/2018 12:03:02 08/27/19 19 08/30/2018 strep tococ cus group B, cultu re, unspe cifie d speci men strep gp B culture Negati ve negati ve Cente rs for Disea se Contr ol and Preve ntion (CDC) and Ameri can Congr ess of Obste trici ans and Gynec ologi sts (ACOG ) guide lines for preve ntion of perin atal group B strep tococ jose armando (GBS) disea se speci fy co-co llect ion of a vagin al and recta l swab speci men to maxim ize sensi tivit y of GBS detec tion. Per the CDC and ACOG, swabb ing both the lower vagin a and rectu m subst antia lly incre ases the yield of detec tion pam red with sampl ing the vagin a alone . Penic illin G, ampic illin , or cefaz ai are indic ated for intra partu m proph ylaxi s of perin atal GBS colon izati on. Refle x susce ptibi lity testi ng shoul d be perfo rmed prior to use of clind amyci n only on GBS isola kit from penic illin -jamil rgic women who are consi dered a high risk for anaph ylaxi s. Treat ment with vanco mycin witho ut addit ional testi ng is warra nted if resis tance to clind amyci n is noted . Not Available [facility] ([facility]) [address] [facility] [address], [place], [address], 08/30/2018 12:35:38 08/27/1908/26/2018 urina lysis , dipst ick Protein Trace Not Available In-Office Order Internal Use Only DO Not Attach Compendium DO Not Attach Compendium, Do Not Delete/merge, [id number] 08/26/2018 12:22:53 08/27/1908/26/2018 urina lysis , dipst ick Glucose Negati ve Not Available In-Office Order Internal Use Only DO Not Attach Compendium DO Not Attach Compendium, Do Not Delete/merge, 08/26/2018 12:22:53 09/03/1909/02/2018 urina lysis , dipst ick Protein Negati ve Not Available In-Office Order Internal Use Only DO Not Attach Compendium DO Not Attach Compendium, Do Not Delete/merge, [id number] 09/02/2018 10:30:52 09/03/1909/02/2018 urina lysis , dipst ick Glucose Negati ve Not Available In-Office Order Internal Use Only DO Not Attach Compendium DO Not Attach Compendium, Do Not Delete/merge, 09/02/2018 10:30:52 09/10/1909/09/2018 urina lysis , dipst ick Protein 30 Not Available In-Office Order Internal Use Only DO Not Attach Compendium DO Not Attach Compendium, Do Not Delete/merge, [id number] 09/09/2018 11:19:36 09/10/19 19 09/09/2018 urina lysis , dipst ick Glucose Negati ve Not Available In-Office Order Internal Use Only DO Not Attach Compendium DO Not Attach Compendium, Do Not Delete/merge, [id number] 09/09/2018 11:19:36 09/17/19 19 09/16/2018 urina lysis , dipst ick Protein 30 Not Available In-Office Order Internal Use Only DO Not Attach Compendium DO Not Attach Compendium, Do Not Delete/merge, [id number] 09/16/2018 10:43:26 09/17/19 19 09/16/2018 urina lysis , dipst ick Glucose Negati ve Not Available In-Office Order Internal Use Only DO Not Attach Compendium DO Not Attach Compendium, Do Not Delete/merge, [id number] 09/16/2018 10:43:26 04/10/20 23 04/10/2023 COMP. METAB OLIC PANEL (14) glucose 80 mg/dL 70-[address] [facility] Department [address] [place] [address], [address], 04/10/2023 19:08:34 04/10/20 23 04/10/2023 COMP. METAB OLIC PANEL (14) BUN 10 mg/dL 6-[address] [facility] Department [address] [place] [address], [address], 04/10/2023 19:08:34 04/10/20 23 04/10/2023 COMP. METAB OLIC PANEL (14) creatinine 0.66 mg/dL 0.76-1 .27 below low normal Not Available [facility] Department [address] [place] [address], [address], 04/10/2023 19:08:34 04/10/20 23 04/10/2023 COMP. METAB OLIC PANEL (14) eGFR 128 >=60 Units for eGFR value s are mL/mi n/1.7 3 The eGFR Calcu latio n has not been valid ated for patie nts under the age of 18. If test resul ts are displ ayed for a patie nt under the age of 18, disre rodolfo that value . Not Available [facility] Department [address] [place], [address], 04/10/2023 19:08:34 04/10/20 23 04/10/2023 COMP. METAB OLIC PANEL (14) BUN/creatini ne ratio 14 9-23 Not Available [facility] Department [address] [place], [address], 04/10/2023 19:08:34 04/10/20 23 04/10/2023 COMP. METAB OLIC PANEL (14) sodium 139 mmol/ L 134-[address] [facility] Department [address] [place] [address], [address], 04/10/2023 19:08:34 04/10/20 23 04/10/2023 COMP. METAB OLIC PANEL (14) potassium 4.4 mmol/ L 3.5-5. [address] [facility] Department [address] [place] [address], [address], 04/10/2023 19:08:34 04/10/20 23 04/10/2023 COMP. METAB OLIC PANEL (14) chloride 104 mmol/ L 96-[address] [facility] Department [address] [place], [address], 04/10/2023 19:08:34 04/10/20 23 04/10/2023 COMP. METAB OLIC PANEL (14) carbon dioxide, total 22 mmol/ L 20-[address] [facility] Department [address] [place], [address], 04/10/2023 19:08:34 04/10/20 23 04/10/2023 COMP. METAB OLIC PANEL (14) calcium 9.4 mg/dL 8.7-[address] [facility] Department [address] [place], [address], 04/10/2023 19:08:34 04/10/20 23 04/10/2023 COMP. METAB OLIC PANEL (14) protein, total 7.3 g/dL 6.0-8. [address] [facility] Department [address] [place] [address], [address], 04/10/2023 19:08:34 04/10/20 23 04/10/2023 COMP. METAB OLIC PANEL (14) albumin 4.6 g/dL 4.0-5. [address] [facility] Department [address] [place] [address], [address], 04/10/2023 19:08:34 04/10/20 23 04/10/2023 COMP. METAB OLIC PANEL (14) globulin, total 2.7 g/dL 1.5-4. [address] [facility] Department [address] [place] [address], [address], 04/10/2023 19:08:34 04/10/20 23 04/10/2023 COMP. METAB OLIC PANEL (14) A/G ratio 1.7 1.2-2. [address] [facility] Department [address] [place] [address], [address], 04/10/2023 19:08:34 04/10/20 23 04/10/2023 COMP. METAB OLIC PANEL (14) bilirubin, total 0.4 mg/dL 0.0-1. [address] [facility] Department [address] [place] [address], [address], 04/10/2023 19:08:34 04/10/20 23 04/10/2023 COMP. METAB OLIC PANEL (14) alkaline phosphatase 58 IU/L 44-121 Not Available [facility] Department [address] [place] [address], [address], 04/10/2023 19:08:34 04/10/20 23 04/10/2023 COMP. METAB OLIC PANEL (14) AST (SGOT) 16 IU/L 0-40 Not Available [facility] Department [address] [place] [address], [address], 04/10/2023 19:08:34 04/10/20 23 04/10/2023 COMP. METAB OLIC PANEL (14) ALT (SGPT) 15 IU/L 0-32 Not Available [facility] Department [address], [place], [address], 04/10/2023 19:08:34 05/29/19 24 06/02/2023 NUSWA B VAGIN ITIS PLUS (VG+) atopobium vaginae High - 2 score abnormal Not Available [facility] ([facility]) [address] [facility] [address], [place], [address], 06/03/2023 06:22:52 05/29/19 24 06/02/2023 NUSWA B VAGIN ITIS PLUS (VG+) bvab 2 High - 2 score abnormal Not Available [facility] ([facility]) [address] [facility] [address], [place], [address], 06/03/2023 06:22:52 05/29/19 24 06/02/2023 NUSWA B VAGIN ITIS PLUS (VG+) megasphaera 1 High - 2 score abnormal Calcu late total score by laniin g the 3 indiv idual bacte rial vagin osis (BV) marke r score s toget her. Total score is inter prete d as follo ws: Total score 0-1: Indic ates the absen ce of BV. Total score 2: Indet ermin ate for BV. Addit ional clini jose armando data shoul d be evalu ated to estab matthias a diagn osis. Total score 3-6: Indic ates the prese nce of BV. This test was devel oped and its perfo rmanc e russ cteri stics deter mined by [facility]. It has not been clear ed or appro sudha by the Food and Drug Admin istra tion. Not Available [facility] ([facility]) [address] [place], [address], 06/03/2023 06:22:52 05/29/19 24 06/02/2023 NUA B VAGIN ITIS PLUS (VG+) benny albicans, SUSI Negati ve negati ve Not Available [facility] ([facility]) [address] [facility] [address], [place], [address], 06/03/2023 06:22:52 05/29/19 24 06/02/2023 NUA B VAGIN ITIS PLUS (VG+) benny glabrata, SUSI Negati ve negati ve Not Available [facility] ([facility]) [address] [facility] [address], [place], [address], 06/03/2023 06:22:52 05/29/19 24 06/02/2023 NUA B VAGIN ITIS PLUS (VG+) trich vag by SUSI Negati ve negati ve Not Available [facility] ([facility]) [address] [facility] [address], [place], [address], 06/03/2023 06:22:52 05/29/19 24 06/02/2023 NUA B VAGIN ITIS PLUS (VG+) chlamydia trachomatis, SUSI Negati ve negati ve Not Available [facility] ([facility]) [address] [facility] [address], [place], [address], 06/03/2023 06:22:52 05/29/19 24 06/02/2023 NUA B VAGIN ITIS PLUS (VG+) neisseria gonorrhoeae, SUSI Negati ve negati ve Not Available [facility] ([facility]) [address] [place], [address], 06/03/2023 06:22:52 Result Notes None recorded. Problems Name Problem SNOMED Code Status Onset Date Resolution Date Notes Provider Name and Address Organization Details Recorded Time RhD negative 483231995 Completed Rhogam @ 28 weeks. Given 9 Kalina Lai RN null, [place] - [facility] 0 09:14:48 Viral pharyngiti s 7582971 Active Edyta [place]erson, [place] - [facility] 9 10:36:27 Gastroesop hageal reflux disease 582783491 Active Edyta Reagan null, [facility] 9 10:36:27 Obesity 768621882 Active Edyta Reagan null, [facility] 9 10:36:27 Pain in right knee Active Edyta anderson, [facility] 9 10:36:27 44533875 Completed 201710/20/2018 Natanael Mack RN null, [facility] 9 10:30:37 Constipati on 12523004 Active 2022 Thong Moran MD Attn: Accountin g,[address] [facility], [place], [address], [facility] - [facility] 3 23:57:52 Problem Notes None recorded. Procedures Surgical History Date Name Laterality Status Provider Name and Address Organization Details Recorded Time 4 IUD Insertion completed Mark Canchola MD Attn: Accounting,[address] [facility], [place], [address], [facility] - [facility] 05/29/2023 10:50:39 5 Other completed Patricia Louis MA [place] - [facility] 07/12/2014 13:57:49 Imaging Results None recorded. Procedure Notes None recorded. Medical Equipment None Reported. Allergies No known drug allergies Medications Name Sig Start Date Stop Date Status Note LastModified by Organization Details LastModified Time Prescripti on - New 04/10 completed rx for rhogam Not Available Not Available Not Available amoxicilli n 500 mg capsule 01/30 completed Not Available Not Available Not Available Mirena 21 mcg/24 hr (up to 8 years) 52 mg intrauteri ne device 1 IUD 2023 active Not Available Not Available Not Avai lable clindamyci n HCl 300 mg capsule 01/30 completed Not Available Not Available Not Available ibuprofen 800 mg tablet 01/30 completed Not Available Not Available Not Available hydrocodon e 5 mg-acetami nophen 325 mg tablet 01/30 completed Not Available Not Available Not Available metronidaz ole 500 mg tablet Take 1 tablet every 12 hours by oral route for 7 days. active Not Available Not Available No t Available ciprofloxa dewey 500 mg tablet TAKE 1 TABLET BY MOUTH TWICE DAILY FOR 10 DAYS 04/10 completed Not Available Not Available Not Available ondansetro n 8 mg disintegra ting tablet LET 1 TABLET DISSOLVE ON TOP OF THE TONGUE TWICE A DAY NEEDED active Not Available Not Available No t Available famotidine 20 mg tablet Take 1 tablet twice a day by oral route. 2022 active Not Available Not Available Not Avai lable ranitidine 150 mg tablet Take 1 tablet twice a day by oral route for 30 days. 01/30 completed Not Available Not Available Not Available omeprazole 20 mg capsule,de layed release active Not Available Not Available Not Available ibuprofen 600 mg tablet TAKE 1 TABLET BY MOUTH EVERY 8 HOURS 04/10 completed Not Available Not Available Not Available polyethyle ne glycol 3350 17 gram/dose oral powder DISSOLVE 17 GRAMS INTO APPROPRI ATE LIQUID AND DRINK BY MOUTH DAILY active Not Available Not Available No t Available ondansetro n 4 mg disintegra ting tablet TAKE 1 TABLET BY MOUTH EVERY 8 HOURS NEEDED FOR NAUSEA FIRST LINE 04/10 completed Not Available Not Available Not Available Tablet 28 mg iron-800 mcg Take 1 tablet by oral route. 04/10 completed Not Available Not Available Not Available Lice Killing (permethri n) 1 % topical liquid Apply 1 mL every day by topical route. 01/30 completed Not Available Not Available Not Available nitrofuran toin monohydrat e/macrocry stals 100 mg capsule active Not Available Not Available N ot Available Vol-Plus 27 mg iron-1 mg tablet active Not Available Not Available Not Available Vitals Date Recorded Body height Body mass index (BMI) Body weight Heart rate Respiratory rate Body temperature Systolic And Diastolic Provider Name and Address Organization Details Last Updated DateTime 4 165.1 cm 22.5 kg/m2 06662.3 7 g 68 /min 18 /min 98.3 [degF] 114/79 mm[Hg] Victorina Chambers MA [place] - [facility] 4 09:17:07 Date Recorded Body weight Provider Name an d Address Organization Details Last Updated DateTime 09/02/2018 [id number] g Vladislav Foy [facility] 2018 10:39:41 Date Recorded Body height Body mass index (BMI) [Percentile] Per age and sex Body mass index (BMI) Systolic And Diastolic Provider Name and Address Organization Details Last Updated DateTime 09/02/2018 164.47 cm 98 % 34.8 kg/m2 130/96 mm[Hg] Edyta Reagan [facility] 09/02/2018 10:26:14 Date Recorded Body weight Provider Name an d Address Organization Details Last Updated DateTime 09/09/2018 [id number] sebastien Foy [facility] 2018 11:40:10 Date Recorded Body height Body mass index (BMI) [Percentile] Per age and sex Body mass index (BMI) Systolic And Diastolic Provider Name and Address Organization Details Last Updated DateTime 09/09/2018 164.47 cm 98 % 35 kg/m2 144/110 mm[Hg] Edyta Reagan [facility] 09/09/2018 11:16:07 Date Recorded Body weight Provider Name an d Address Organization Details Last Updated DateTime 09/16/2018 [id number] sebastien Foy [facility] 2018 12:23:53 Date Recorded Body height Body mass index (BMI) Body mass index (BMI) [Percentile] Per age and sex Systolic And Diastolic Provider Name and Address Organization Details Last Updated DateTime 09/16/2018 164.47 cm 35.9 kg/m2 98 % 130/102 mm[Hg] [facility]/16[facility]2018 10:40:29 Date Recorded Body height Body mass index (BMI) Body weight Heart rate Body temperature Respiratory rate Oxygen saturation Oxygen saturation in Arterial blood by Pulse oximetry Systolic And Diastolic Provider Name and Address Organization Details Last Updated DateTime 3 165.1 cm 23.5 kg/m2 41831.5 7 g 75 /min 97.1 [degF] 16 /min 98 % 98 % 114/77 mm[Hg] Judith Sol MA [facility] 3 09:04:08 Social History Question Answer Notes LastModified by Organization Details LastModified Time Tobacco Smoking Status Former Smoker pt quit using the vapes about a week ago (01/28/18) Edyta anderson, [place] - [facility] 02/01/2018 12:37:17 Do You Have An Advance Directive? No Information not available 04/10/2023 Animal Exposure? Yes 2 Outside Cats Inf ormation not available 01/30/2017 Is Blood Transfusion Acceptable In An Emergency? Yes Information not available 02/01/2018 What Is Your Level Of Caffeine Consumption? Occasional [email or web address] Information not available 07/12/2014 Live With Cats/exposure To Cat Litter Yes Information not available 02/01/2018 What Type Of Home Appliance Tech Do You Use? None [email or web address] Information not available 01/30/2017 In The 14 Days Before Symptom Onset, Have You Had Close Contact With A Laboratory-confi rmed COVID-19 While That Case Was Ill? No Information not available 04/10/2023 In The 14 Days Before Symptom Onset, Have You Had Close Contact With A Person Who Is Under Investigation For COVID-19 While That Person Was Ill? No Information not available 04/10/2023 Have You Been To An Area Known To Be High Risk For COVID-19? No Information not available 04/10/2023 What Type Of Diet Are You Following? REGULAR [email or web address] Information not available 07/12/2014 Education 10 Information not available 02/01/2018 Have There Been Any Changes To Your Family Or Social Situation? No [email or web address] Information not available 01/30/2017 Frequent Air Travel No Information not available 02/01/2018 Are There Any Guns Present In Your Home? No [email or web address] Information not available 01/30/2017 What Is Your Home Situation? Other Grandmother Information not available 04/10/2023 Illicit Drugs Pre- Denies Information not available 02/01/2018 Do You Use Insect Repellent Routinely? Yes [email or web address] Information not available 07/12/2014 Live Alone Or With Others? With Others Information not available 02/01/2018 Car Seat Type Or Seat Belt? Seat Belt [email or web address] Information not available 07/12/2014 Parent Involvement? Both Parents Involved [email or web address] Information not available 07/12/2014 Riding In Car Front Seat? Yes [email or web address] Information not available 07/12/2014 Marital Status Single Informatio n not available 02/01/2018 What Was The Date Of Your Most Recent Tobacco Screening? 04/10/2023 Information not available 04/10/2023 How Many Children Do You Have? 0 Information not available 02/01/2018 What Is Your Current Pack Years? [email or web address] Information not available 04/10/2023 What Is Your Parents' Marital Status? [email or web address] Information not available 07/12/2014 Pool Exposure No Information not available 07/12/2014 What Is Your Relationship Status? Single Information not available 04/10/2023 What Is The Name Of Your School? [employer] [email or web address] Information not available 01/30/2017 Are You Sexually Active? Yes Information not available 02/01/2018 Do You Have Any Siblings? 2 Sister 1 Brother Information not available 07/12/2014 Do You Have Smoke And Carbon Monoxide Detectors In Your Home? Yes [email or web address] Information not available 07/12/2014 At What Age Did You Start Smoking Tobacco? 15 Information not available 04/10/2023 Are You Passively Exposed To Smoke? No Information not available 02/01/2018 Smoking Pre- Yes Vapes Information not available 02/01/2018 What Types Of Sporting Activities Do You Participate In? None [email or web address] Information not available 01/30/2017 General Stress Level Medium Information not available 02/01/2018 Do You Use Sunscreen Routinely? Yes [email or web address] Information not available 07/12/2014 Has Tobacco Cessation Counseling Been Provided? Yes Information not available 04/10/2023 On What Date Was Tobacco Cessation Counseling Provided? 05/29/2023 [email or web address] Information not available 05/29/2023 How Many Years Have You Smoked Tobacco? 1 Information not available 04/10/2023 Year In School 9 Informati on not available 01/30/2017 How Many Years Have You Used E-cigarettes Or Vape? 5 Information not available 04/10/2023 Sex: Female Functional Status Question Answer Note LastModified by Organizat ion Details LastModified Time Do you use any illicit or recreational drugs? Yes Marijuana Information not available 04/10/2023 Do you or have you ever used any other forms of tobacco or nicotine? Yes Information not available 04/10/2023 What is your level of alcohol consumption? None Information not available 02/01/2018 Do you or have you ever used smokeless tobacco? Never used [email or web address] tobacco Information not available 04/10/2023 Are you currently employed? Yes Information not available 04/10/2023 What is your occupation? [employer] Information not available 04/10/2023 Do you or have you ever used e-cigarettes or vape? Current user of electronic cigarettes Information not available 04/10/2023 What is your exercise level? None Information not available 02/01/2018 Mental Status Question Answer Note LastModified by Organization D etails LastModified Time Are you or have you been involved with bullying? No [email or web address] Information not available 07/12/2014 Family History Relationship Description Onset Age of this Age Resolved Age Notes LastModified by Organization Details LastModified Time Mother Hypertensive disorder [place] Not available 2017 12:36:18 Medical History Condition Response Other N High Blood Pressure N Blood Diseases N Breast Cancer N Lung Disease N Depression Y Blood Clots N Developmental or Behavioral Disorders N Breast Problem N Premature N Anesthesia Complications N Headaches/Migraines Y Anxiety Disorder N Muscle, Joint, or Bone Problems N Vision or Eye Problems N Head Injury/Concussion N Infertility N Polyps N Acid Reflux (GERD) Y Cancer N ADHD N Endometriosis N Bladder or Kidney Problems N High Cholesterol N Liver Disease N Headaches N Ear or Hearing Problems N Thyroid Problems N Kidney or Bladder Problems N GI Problems N Acne Y Eating Disorder N Skin Problems N Anemia N Constipation N Diabetes N Ovarian Cancer N Bedwetting N Blood Transfusions N Heart Problems/Murmur N Seizures/Epilepsy N Abuse/Domestic Violence N Asthma N Allergies N Hepatitis N Heart Disease N Pre-Eclampsia N Chicken Pox N Autism Spectrum Disorder (ASD) N Osteoporosis N Gynecological History Statement/Question Response Flow Heavy Date of LMP 05/22/2023 On BCP's at Conception? N STIs/STDs N HPV Vaccine N Duration of Flow (days) 7 Age at Menarche 13 Current Control Method None Age at First Child 19 Frequency of Cycle (Q days) 28 Sexually Active? Y Menses Monthly Y Date of Last Pap Smear Sexual Problems? N LMP Approximate Obstetrics History GPAL:G 3 P 3 0 0 3 Type Value Multiple Births 0 Full Term 3 Induced 0 Spontaneous 0 Premature 0 Living 3 Ectopics 0 Total 3 Immunizations Vaccine Type Date Status Note Provider Nam e and Address Organization Details Recorded Time Rho(D)-IG 9 completed [place], [place] [facility] 09/16/2018 10:36:33 DTaP 7 completed [place] [facility] 09/16/2018 10:36:33 DTaP 2 completed [place] [facility] 09/16/2018 10:36:33 DTaP 3 completed [place] [facility] 09/16/2018 10:36:33 DTaP 2 completed [place] [facility] 09/16/2018 10:36:33 DTaP 2 completed [place] [facility] 09/16/2018 10:36:33 Hib, unspecified formulation 2 completed [place] [facility] 09/16/2018 10:36:33 Hib, unspecified formulation 3 completed [place] [facility] 09/16/2018 10:36:33 Hib, unspecified formulation 2 completed [place] [facility] 09/16/2018 10:36:33 Hib, unspecified formulation 2 completed [place] [facility] 09/16/2018 10:36:33 Hep A, ped/adol, 2 dose 7 completed [place] [facility] 09/16/2018 10:36:33 Hep A, ped/adol, 2 dose 4 completed [place] [facility] 09/16/2018 10:36:33 Hep B, adolescent or pediatric 2 completed [place] [facility] 09/16/2018 10:36:33 Hep B, adolescent or pediatric 1 completed [place] [facility] 09/16/2018 10:36:33 Hep B, adolescent or pediatric 2 completed [place] [facility] 09/16/2018 10:36:33 MMR 7 completed [place] [facility] 09/16/2018 10:36:33 MMR 3 completed [place] [facility] 09/16/2018 10:36:33 meningococcal MCV4, unspecified formulation 4 completed [place] [facility] 09/16/2018 10:36:33 pneumococcal conjugate PCV 7 2 completed [place] [facility] 09/16/2018 10:36:33 pneumococcal conjugate PCV 7 2 completed [place] [facility] 09/16/2018 10:36:33 IPV 2 completed [place] [facility] 09/16/2018 10:36:33 IPV 7 completed [place] [facility] 09/16/2018 10:36:33 IPV 2 completed [place] [facility] 09/16/2018 10:36:33 IPV 3 completed [place] [facility] 09/16/2018 10:36:33 Tdap 4 completed [place] [facility] 09/16/2018 10:36:33 varicella 7 completed [place] [facility] 09/16/2018 10:36:33 varicella 3 completed [place] [facility] 09/16/2018 10:36:33 Influenza, split virus, quadrivalent, preservative 9 completed Not Available [facility] 05/21/2019 02:37:03 Tdap 9 completed Not Available [facility] 05/21/2019 02:49:15 Past Encounters Encounter ID Performer Location Encounter Start Date Encounter Closed Date Diagnosis/Indication Diagnosis SNOMED-CT Code Diagnosis ICD10 Code Diagnosis IMO Codes Diagnosis Note [id number] [facility] [address] [place] [address] 07/12/2014 13:42:22 07/12/2014 17:28:12 Viral pharyngitis 8430896 rest, Tylenol, humidifier , etc [id number] [facility] [address] [place] [address] 01/03/2016 16:09:45 01/03/2016 17:45:37 Gastroesophageal reflux disease 445245830 K21.9 minimize spicy/fatt y/processe d food intake. Obesity 367525847 E66.9 weight reduction with diet and exercise Pain in right knee 70726 [id number] 76392 M25.561 suspect pain is due to inactivity . recommende d starting up exercise program. [id number] [facility] [address] [place] [address] 04/29/2016 11:24:01 04/29/2016 17:38:35 Upper respiratory infection 17068599 J06.9 rest, tylenol prn, humidifier , vitamin c, etc [id number] Maxime Chacon MD [facility] (Peds) [address] [place] [address] 01/30/2017 14:42:27 02/03/2017 11:45:59 Well child 166946016 Z00.342 [id number] [facility] [address] [facility] [address] 02/01/2018 11:56:13 02/05/2018 09:33:49 Missed period 44683676 N92.5 UTP positive, dwp. Routine an tenatal care 363254629 Z34.01 See ACOG form [id number] MD Thelma Gonzalezhalto (FIBER DESIGN ENGINEER) [address] [place] [address] 06/02/2018 09:27:55 06/03/2018 09:27:47 Routine care 622812378 Z34.02 See ACOG form [id number] MD Thelma Gonzalezhalto (FIBER DESIGN ENGINEER) [address] [place] [address] 06/16/2018 09:33:08 06/16/2018 10:05:37 Routine care 463871079 Z34.02 See ACOG form [id number] MD Thelma Gonzalezhalto (FIBER DESIGN ENGINEER) [address] [place] [address] 06/24/2018 10:35:02 06/25/2018 10:56:35 Routine care [id number] Z34.02 See ACOG form [id number] MD Damien Gonzalez (FIBER DESIGN ENGINEER) [address] [place] [address] 07/01/2018 11:30:44 07/01/2018 12:49:32 Routine care 214752690 Z34.03 See ACOG form [id number] MD Thelma Gonzalezhalto (FIBER DESIGN ENGINEER) [address] [place] [address] 07/15/2018 11:25:50 07/16/2018 10:41:04 Routine care 433916889 Z34.03 See ACOG form [id number] MD Thelma Gonzalezhalto (FIBER DESIGN ENGINEER) [address] [place] [address] 07/29/2018 11:50:19 07/30/2018 11:57:41 Routine care 260659564 Z34.03 See ACOG form [id number] MD Damien Gonzalez (FIBER DESIGN ENGINEER) [address] [place] [address] 08/19/2018 11:53:52 08/20/2018 11:43:59 Routine care 085620339 Z34.03 See ACOG form [id number] MD Damien Gonzalez (FIBER DESIGN ENGINEER) [address] [place] [address] 08/26/2018 11:50:12 08/27/2018 11:39:42 Routine care [id number] Z34.03 See ACOG form [id number] MD Thelma Gonzalezhalto (FIBER DESIGN ENGINEER) [address] [place] [address] 09/02/2018 10:18:10 09/03/2018 11:30:38 Routine care 513828343 Z34.03 See ACOG form [id number] MD Damien Gonzalez (FIBER DESIGN ENGINEER) [address] [place] [address] 09/09/2018 10:55:18 09/10/2018 10:56:32 Routine care 375774747 Z34.03 See ACOG form [id number] MD Damien Gonzalez (FIBER DESIGN ENGINEER) [address] [place] [address] 09/16/2018 10:32:35 09/17/2018 13:27:10 Routine care [id number] Z34.03 See ACOG form [id number] MD Mauricio Soln 14 IM [address] [facility] [address] [place] [address] 04/10/2023 08:53:07 04/17/2023 08:58:44 Gastroesophageal reflux disease 470766068 K21.9 History c/w GERD with suspected component of cannabis hyperemesi s syndromeSm all, frequent mealsReduc e/stop marijuana useStop vapingAvoi d triggers - diet discussed with patientFam otidine 20mg BID for 1 month - will increase if ineffectiv e, PPI if fails on higher doseOndans etron as needed for nauseaRTC in 1 month Constipation 55260762 K5 9.00 Possibly contributi ng to nausea/vom itingIncre ase fiber intakeMira lax Nausea and vomiting 1693 1999 R11.2 Component of GERD with suspected underlying cannabis hyperemesi s syndrome, chronic constipati onSince ED visit, noted 6 lb weight gain but overall about 15-20 pounds less than pre-pregna ncy weightMana ge GERD as aboveOndan setron as needed for nauseaMana ge constipati on with Miralax, increase fiber in dietCMP to look for any electrolyt e dysfunctio n - did have it done in ED per pt but labs not sent over Contracept ion care management 976309734 Z30.9 Discussed OCP, depo, nexplanon, ring, IUD, patch. Risks of hormonal control reviewed, including but not limited to thrombosis , embolism, pulmonary embolism, stroke, disability , sexual dysfunctio n. Patient understand s these risks are increased with smoking. Patient understand s that these risks may be increased when using the patch (Ortho-Evr a) or the vaginal ring (Nuva-Ring ) when compared to oral control pills. Risks of bone loss with Depo Provera also reviewed. Patient understand s & accepts risks. Patient has opted for Kyleena IUD - scheduled on 04/[address] procedure clinic with Dr. Canchola Discuss pap at next visit. Has never had one. Influenza vaccination declined 012191679 Z28.21 SARS-CoV-2 mRNA vaccine declined 3731607654 Z28. [id number] Joya Moran MD [place] [address] [facility] [place] [address] 05/29/2023 08:51:51 06/08/2023 15:35:45 Contraception care management 258075083 Z30.9 IUD placed successful ly. Bhcg neg today. Plan- Nuswab today prior to insertion- Successful insertion of IUD- Educated no sex for 1 week.- No protection from STI, still advised condoms. Health Concerns Section Related Observation LastModified by Organization Detai ls LastModified Time None Recorded Concern Status LastModified by Organization Details LastModified Time None Recorded Advance Directives Directive N: Payers Insurance Date Sequence Insurance Name Policy Number Policy Gutiérrez Covered Member ID Gutiérrez Member ID Guarantor Name 06/05/2023 1 [facility] - DOS PRIOR TO 2020 (MEDICAID REPLACEMENT - HMO) Mary Bishop [id number] Dolores Kaiser 06/08/2023 1 [facility] - DOS ON OR AFTER 20 (MEDICAID REPLACEMENT - HMO) Mary Bishop [id number] Dolores Kaiser 06/05/2023 1 [facility] (MEDICAID HMO) [id number] Mary Bishop [id number] Dolores Kaiser 06/05/2023 2 [place] WHEN MEDICARE OR MEDICARE REPLACEMENT PRIMARY) Mary Bishop [id number] Dolores Kaiser 06/05/2023 1 [facility] (MEDICARE REPLACEMENT/AD VANTAGE - HMO) Mary Bishop [id number] Dolores Kaiser 06/05/2023 1 [place] [facility] Mary Bishop [id number] Dolores Kaiser 02/01/2018 1 *SELF PAY* Marybel Vigil 01/30/2017 SLIDING FEE SCHEDULE - DISCOUNT Dolores Kaiser 02/01/2018 SLIDING FEE SCHEDULE - DISCOUNT Dolores Kaiser 06/05/2023 2 [place] [facility] Mary Bishop [id number] Dolores Kaiser Notes Date Note Type Note Provider Name and Address Organization Details Recorded Time 04/10/2023 text/html 22 yo female with a history of GERD who presents for ED follow-up and to establish care and discuss reflux symptoms. She was recently seen in ED for nausea/vomiting on 03/30. UPT neg at that time (verified with hospital records). CT scan normal (per patient, ED report does not have this info). Zofran prescribed on discharge. Since age 13, she has had to force her body to keep food down. Worse in the past 2 to 3 months. Burning epigastric pain (feels like my stomach is on fire) with daily nausea and NBNB emesis. Nausea almost every time she eats. Vomits 3x/day. Has lost unknown amount of weight over the last couple of months. If she eats ice or drinks ice water pain improves. Heating pad on abdomen also helps. Eats twice a day. Breakfast and dinner. Breakfast - usually cereal with lactose-free milk and granola bar. Dinner - either chicken, hamburgers, vegetables, or mac n cheese. Has tried to eat small meals during the day but has been unable to do so consistently. Drinks mainly water and avoids carbonated beverages and does not drink alcohol. Has tried zofran for nausea with moderate relief - is almost out. Not on any H2RAs or PPIs. Has tried ranitidine in the past - cannot remember if it was effective or not. She is currently vaping but cutting back, smokes marijuana almost every day (to stimulate appetite), . BMs 1x/week if she is gagan. BMs 1-2x/week in the past has been her normal. BM consistency is well-formed to moderately hard. Having monthly periods. LMP 03/20. Interested in control. Does not trust herself to remember taking daily pills. Open to long-acting methods of control. No personal or family history of PE, DVT, blood clotting disorders. Has never had a pap smear. Lives with 4, 3, 1 yo old at home along with grandma, youngest's dad, and 1 outdoor cat. 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 Discussed that no BC is 100% effective and there is a very low risk of with all of these options. At this time, pt desires to have Mirena IUD placed. Benefits, risks, and alternatives discussed in detail. All questions and concerns addressed prior to insertion. Joya Moran MD Attn: [address] [place], [address], [facility] 06/06/2023 09:29:00 OBGyn Episode Ob Episode Information Episode Created Date Number of Fetuses Patient Bloodtype Patient rh Status Prepregnancy Weight lbs Domestic Partner Domestic Partner Phone Father Name Cloth Cutter Status 02/02/20 18 1 O Negative jagjit pher batres CLOSED Fetus Data First Name Last Name Admitted to NICU Weight (g) Sex Living Outcome Pediatric Complications Fetus ID Race Codes Race Delivery Type false 2982.36 74 M true Full Term [id number] 2106-3 White Vaginal Problems Problem Notes O-/ Ab neg/ RI/ RPR NR/ HbsA g Neg/ HIV NR / GC-Chlam neg-neg/ 1 hour = 102. Flu shot declined 06/02/18, given 06/16/18. TdaP given 07/01/18 Problem Name Start Date End Date Resolution Snomed Code Not e RhD negative [id number] Rhogam @ 28 weeks. Given 07/05/18 Obie Calculation Initial Obie Date Initial Exam Date Initial Exam Provider Initial Ultrasound Date Last Menstrual Period Date Ultra Sound Weeks Gestation 09/12/2018 02/01/2018 02/22/2018 12/06/2017 10 Eighteen To Twenty Week Obie Update Ultra Sound Date Fundal Height At Umbil Quickening Date Ultra Sound Latest Weeks Gestation Final Obie Confirmed By Final Obie Confirmed Date Final Obie Date Ultra Sound Latest Days Gestation 06/10/19 19 25 [id number] 02/22/2018 09/21/19 19 3 Pre-tiara Flowsheet Flowsheet Date 02/01/2018 Mccord Score Blood Edema Fundus Height Fundus Units Glucose Ketones Leukocytes Nitrite Labor Signs Protein Cervic Dilation Cervic Effacement Cervic Station Type Weight in lbs Pre/Post Dialysis Refused Weight 174.57002886927 BP Diastolic BP Location Tested BP Systolic BP Type 78 124 sitting Fetus Heart Rate Present Fetus Movement Comments folder given. Pren atal labs ordered. Rx PNVs sent to pharmacy. Dating US ordered. RTO 4 weeks for NOB visit. Flowsheet Date 06/02/2018 Mccord Score Blood Edema Fundus Height Fundus Units Glucose Ketones Leukocytes Nitrite Labor Signs Protein Cervic Dilation Cervic Effacement Cervic Station 23 cm none neg Type Weight in lbs Pre/Post Dialysis Refused Weight 177.707956589878 BP Diastolic BP Location Tested BP Systolic BP Type 80 110 sitting Fetus Heart Rate Present A 150 Present Fetus Movement Comments Non-compliance d/w pt. Pt. a grees to get all labs done and come to all appointments. Pt. to get labs today. Flu shot discussed, declined. Anatomy US ordered. RTO 2 weeks. Flowsheet Date 06/16/2018 Mccord Score Blood Edema Fundus Height Fundus Units Glucose Ketones Leukocytes Nitrite Labor Signs Protein Cervic Dilation Cervic Effacement Cervic Station 25 cm none neg Type Weight in lbs Pre/Post Dialysis Refused Weight 182.351783863220 BP Diastolic BP Location Tested BP Systolic BP Type 72 110 sitting Fetus Heart Rate Present A 150 Fetus Movement A Yes Comments Anatomy US normal but cord a nd cord insertion not mentioned. Call out to radiologist. Flu shot discussed, given. PT labor prec. discussed. RTO one week. Third trimester labs next visit. Instructions discussed, given. Rhogam in 2 weeks. Flowsheet Date 06/24/2018 Mccord Score Blood Edema Fundus Height Fundus Units Glucose Ketones Leukocytes Nitrite Labor Signs Protein Cervic Dilation Cervic Effacement Cervic Station none neg Type Weight in lbs Pre/Post Dialysis Refused Weight 180.4232238559 BP Diastolic BP Location Tested BP Systolic BP Type 82 116 sitting Fetus Heart Rate Present A 160 Present Fetus Movement A Yes Comments Cord insertion good. Third t rimester labs today. TdaP discussed, wants to wait til next visit. PT labor prec. discussed. RTO one week. Rhogam next visit. TdaP next visit. Flowsheet Date 07/01/2018 Mccord Score Blood Edema Fundus Height Fundus Units Glucose Ketones Leukocytes Nitrite Labor Signs Protein Cervic Dilation Cervic Effacement Cervic Station 28 cm none neg Type Weight in lbs Pre/Post Dialysis Refused Weight 181.221273359048 BP Diastolic BP Location Tested BP Systolic BP Type 70 124 sitting Fetus Heart Rate Present A 150 Present Fetus Movement A Yes Comments Third trimester labs wnl, dw p. TdaP discussed, given. Rx Rhogam given. Instructions discussed. PT labor prec/kick counts discussed. RTO 2 weeks. Flowsheet Date 07/15/2018 Mccord Score Blood Edema Fundus Height Fundus Units Glucose Ketones Leukocytes Nitrite Labor Signs Protein Cervic Dilation Cervic Effacement Cervic Station 30 cm none neg Type Weight in lbs Pre/Post Dialysis Refused Weight 189.196280780732 BP Diastolic BP Location Tested BP Systolic BP Type 76 108 sitting Fetus Heart Rate Present A 140 Present Fetus Movement A Yes Comments Rhogam given 07/05/18. PT la bor prec/kick counts discussed. RTO 2 weeks. Flowsheet Date 07/29/2018 Mccord Score Blood Edema Fundus Height Fundus Units Glucose Ketones Leukocytes Nitrite Labor Signs Protein Cervic Dilation Cervic Effacement Cervic Station none neg Type Weight in lbs Pre/Post Dialysis Refused Weight 200.931842762670 BP Diastolic BP Location Tested BP Systolic BP Type 84 130 sitting Fetus Heart Rate Present A 170 Present Fetus Movement A Yes Comments Just age two doughnuts. PT l abor prec/kick counts discussed. RTO two weeks. Flowsheet Date 08/19/2018 Mccord Score Blood Edema Fundus Height Fundus Units Glucose Ketones Leukocytes Nitrite Labor Signs Protein Cervic Dilation Cervic Effacement Cervic Station 34 cm none 1+ Type Weight in lbs Pre/Post Dialysis Refused Weight 203.556826379245 BP Diastolic BP Location Tested BP Systolic BP Type 92 138 sitting 92 138 sitting Fetus Heart Rate Present A 150 Present Fetus Movement A Yes Comments Elevated BP x 2 and protein in the urine. Pt. with KIM this AM. Risk of preeclampsia d/w pt. Pt. to L&D for PIH w/u. Labor prec/kick counts discussed. RTO one week. GBS next visit. Flowsheet Date 08/26/2018 Mccord Score Blood Edema Fundus Height Fundus Units Glucose Ketones Leukocytes Nitrite Labor Signs Protein Cervic Dilation Cervic Effacement Cervic Station none trace Type Weight in lbs Pre/Post Dialysis Refused Weight 205.425487094707 BP Diastolic BP Location Tested BP Systolic BP Type 94 130 sitting Fetus Heart Rate Present Fetus Movement Comments PIH w/u completely negative last week. Pt. denies KIM, BV, RUQ pain. GBS done today. Labor prec./kick counts discussed. rTO one week. Flowsheet Date 09/02/2018 Mccord Score Blood Edema Fundus Height Fundus Units Glucose Ketones Leukocytes Nitrite Labor Signs Protein Cervic Dilation Cervic Effacement Cervic Station none neg 0cm Type Weight in lbs Pre/Post Dialysis Refused Weight 207.392643986707 BP Diastolic BP Location Tested BP Systolic BP Type 96 130 sitting Fetus Heart Rate Present A 130 Present Fetus Movement A Yes Comments GBS negative, dwp. Labor pre c/kick counts discussed. Pt. denies s/sx pre-eclampsia. Flowsheet Date 09/09/2018 Mccord Score Blood Edema Fundus Height Fundus Units Glucose Ketones Leukocytes Nitrite Labor Signs Protein Cervic Dilation Cervic Effacement Cervic Station 38 cm none 1+ 0cm 0% -3 Type Weight in lbs Pre/Post Dialysis Refused Weight 208.932414144621 BP Diastolic BP Location Tested BP Systolic BP Type 110 144 sitting Fetus Heart Rate Present A 140 Present Fetus Movement A Yes Comments Elevated BP. Pt. denies S/Sx pre-eclampsia. Pt. to L&D for PIH w/u. Labor prec/kick counts discussed. RTO one week if not delivered. Flowsheet Date 09/16/2018 Mccord Score Blood Edema Fundus Height Fundus Units Glucose Ketones Leukocytes Nitrite Labor Signs Protein Cervic Dilation Cervic Effacement Cervic Station 39 cm 1cm 50% -4 Type Weight in lbs Pre/Post Dialysis Refused Weight 214.161317072748 BP Diastolic BP Location Tested BP Systolic BP Type 102 130 sitting Fetus Heart Rate Present A 140 Present Fetus Movement A Yes Comments PIH w/u at hospital negative . Labor prec/kick count discussed. IOL scheduled 09/21/18. Menstrual History Last Menstrual Date Menses Monthly On Bcp Conception Prior Menses Frequency Hcg Plus Date Menarche Onset Age 0812/06/2017 false 7 8 12 Genetic Screening And Infection History Question Response Note Patient's Age Will Be 35 Yea rs Or Older At Estimated Date of Delivery false Thalassemia (Turkish, Latvian, Mediterranean, Or Background): MCV < 80 false Neural Tube Defect (Meningom yelocele, Spina Bifida, Or Anencephaly) false Congenital Heart Defect false Down Syndrome true pt states hersel f has a touch of down syndrome and pt little sister has down syndrome Alfred-Sachs (eg, Episcopal, Cajun , Kinyarwanda-Breeding) false Derick Disease false Sickle Cell Disease Or Trait () false Hemophilia Or Other Blood Disorders false Muscular Dystrophy false Cystic Fibrosis false Dustin's Chorea false Mental Retardation/Autism true mob 1s t cousin is autistic Maternal Metabolic Disorder (eg, Type 1 Diabetes, PKU) false Patient Or Baby's Father Had A Child With Defects Not Listed Above false Recurrent Loss, Or A Stillbirth false Medications (including Suppl ements, Vitamins, Herbs, OTC Drugs), Illicit/Recreational Drugs, Alcohol true Any Other Genetic History false Live With Someone With TB Or Exposed To TB false Patient Or Partner Has Histo ry Of Genital Herpes false Rash Or Viral Illness Since Last Menstrual Period false History Of STD, Gonorrhea, C hlamydia, HPV, Syphilis false Other Infection History false History of HIV false History of Hepatitis false Prior GBS-infected child false Delivery Information Delivery Date Delivery Type Labor Anesthesia Weeks Gestation Incision Type Labor Labor Length Hrs Delivered By Post Complications Tubal Sterilization Discharge Date Comments 9 Induce d [facility] Vladislav Lowe Discharge Information Feeding Method Contraceptive Method Maternal HG B and HCT Levels
[2025-02-05 11:58] VITALS: BP 130/90; PULSE 73; RESP 20; TEMP 36.7; O2SAT 100
--- NOTE | 2025-02-05 12:22 | ED.DENTAL ---
HPI - Dental/Oral General Chief complaint: Dental/Oral Stated complaint: Toothache Time Seen by Provider: 02/05/25 12:00 Source: patient and RN notes reviewed Mode of arrival: ambulatory Limitations: no limitations History of Present Illness HPI Narrative: 24-year-old female presents [facility] complaining left upper dental pain proximally 5 days. Patient has appointment with a dentist this upcoming Thursday. Patient of the pain is getting worse, Tylenol ibuprofen is not helping. Patient reports poor dental hygiene and running teeth. Patient denies any pain or swelling under her tongue, fevers, eczema chills, difficulty breathing, difficulty clearing secretions, dysphagia, or any other symptoms. Related Data Allergies Allergy/AdvReac Type Severity Reaction Status Date / Time No Known Allergies Allergy Verified 04/28/24 12:41 Review of Systems Review of Systems: CONSTITUTIONAL: Denies fever, chills, or sweats. EYES: Denies visual changes, redness, or discharge. ENT: Denies rhinorrhea, congestion, sore throat, or otalgia. MOUTH: Positive for dental pain. CARDIOVASCULAR: Denies chest pain, palpitations, or edema. RESPIRATORY: Denies cough or dyspnea. GASTROINTESTINAL: Denies abdominal pain, nausea, vomiting, or diarrhea. GENITOURINARY: Denies dysuria or hematuria. SKIN: Denies rash or itching. MUSCULOSKELETAL: Denies back pain, joint pain, or myalgia. NEUROLOGIC: Denies headache, numbness, or weakness. PSYCHIATRIC: Denies anxiety or depression. All other systems reviewed are negative, except as documented in HPI. PMFSH Past Medical History Medical History Migraine Social History Social History Smoking status: Current every day smoker Tobacco type: e-cigarettes/vaping Alcohol intake: unknown Substance use: unknown Living arrangements: with family Gender identity (if verbalized by the patient): Female Comments At the time of my signature, I reviewed and agree with the nursing past medical, surgical, social, and family history. There is no relevant family history pertinent to the patient complaint. Exam Narrative: GENERAL: This is a well-nourished, well-developed adult, in no apparent distress. They are non ill-appearing, nontoxic appearing. HEAD: normocephalic, atraumatic. EYES: Sclera clear/white. Conjunctiva normal. Vision is grossly intact. Extraocular movements intact EARS: External ears normal, Hearing grossly intact. NOSE: External nose normal OROPHARYNX: Missing teeth present. Gross tooth decay to the left upper gum. Left upper gum near 1st and 2nd molar is erythematous, tender to palpate. No area of fluctuance, no exudate. No pain or swelling under the tongue. Tongue midline. THROAT: Mucous membranes moist, posterior pharynx clear, without erythema or swelling. Uvula midline. NECK: Neck supple, non-tender without lymphadenopathy, masses or thyromegaly. CARDIOVASCULAR: Regular rate and rhythm RESPIRATORY: Respiratory rate normal, respiratory effort nonlabored, no respiratory distress SKIN: warm, Dry, intact with no suspicious lesions or rash, good texture and turgor. NEURO: awake, alert, and oriented to person, place and time. There were no obvious focal neurologic abnormalities. EXTREMITIES: No joint tenderness, effusion, or edema noted. Course Course Emergency Course: Portions of this record may have been created with voice recognition software Level of Care: Express Care Visit Vital Signs Vital signs: Vital Signs Temperature 98.1 F 02/05/25 11:58 Pulse Rate 73 02/05/25 11:58 Respiratory Rate 20 02/05/25 11:58 Blood Pressure 130/90 02/05/25 11:58 Pulse Oximetry 100 02/05/25 11:58 Oxygen Delivery Room Air 02/05/25 11:58 Temperature 98.1 F 02/05/25 11:58 Pulse Rate 73 02/05/25 11:58 Respiratory Rate 20 02/05/25 11:58 Blood Pressure 130/90 02/05/25 11:58 Pulse Oximetry 100 02/05/25 11:58 Oxygen Delivery Room Air 02/05/25 11:58 Reviewed MDM - Dental/Oral MDM Narrative Medical decision making narrative: Patient likely has dental infection. Will treat with Augmentin. Will also prescribe viscous lidocaine as needed for pain topically. Patient has follow-up with dentist this upcoming Thursday. Discussed physical exam findings. Advised supportive measures and signs/symptoms to go to the ER. Pt is appropriate for outpt treatment and f/u. Differential Diagnosis Differential diagnosis: Likely gingival abscess, dental caries, dental abscess and fracture of tooth Critical Care Time Critical Care Time Critical Care Time: No Discharge Plan Discharge Clinical Impression: Dental caries Patient Disposition: Home Condition: Stable Instructions: Antibiotic Form, Dental Abscess (ED) Additional Instructions: Take the antibiotics as directed. You may alternate Tylenol and ibuprofen as needed for pain. Follow instructions on the bottle. You may use viscous lidocaine as needed for pain in your mouth. Use a Q-tip and apply directly to the affected area. [place] your teeth and floss at least 2 times a day. Follow-up with dentist next week. If you developed worsening swelling, fevers, difficulty swallowing or breathing, difficulty opening her jaw, swelling under the tongue, or any other concerns please go to the ER immediately. Patient Language: Tristanian Prescriptions: New lidocaine HCl [Lidocaine Viscous] 2 % solution 1 applic mucous membrane TID PRN (Reason: pain) Qty: 100 0RF amoxicillin-pot clavulanate 875-125 mg tablet 1 tablet PO Q12H 7 Days Qty: 14 0RF No Action ibuprofen 600 mg tablet 600 mg PO QID PRN (Reason: fever or pain) Qty: 20 0RF Follow-up/Referrals: PHYSICIAN,CHISEL MORTISER OPERATOR [Primary Care Provider, Internal Medicine] Time of Disposition: 12:19
== END 2025-02-05 12:31 | disposition home or self-care (01) ==
DX: K02.9 Dental caries, unspecified (principal); F17.290 Nicotine dependence, other tobacco product, uncomplicated
CPT/HCPCS: 99213; G0463